=== PATIENT | male | born 1950 | race Two or more races ===

== ENCOUNTER 2021-01-31 12:18 | Outpatient (CLI) | payer OTHER, BC | END 2021-01-31 12:28 | disposition home or self-care (01) | LOC: RAD 12:18 | PROVIDERS: ATTEND Internal Medicine | DX: E03.8 Other specified hypothyroidism (principal); I10 Essential (primary) hypertension; M54.59 Other low back pain; Z01.810 Encounter for preprocedural cardiovascular examination; E55.9 Vitamin D deficiency, unspecified; E11.51 Type 2 diabetes mellitus with diabetic peripheral angiopathy without gangrene; N41.0 Acute prostatitis ==

== ENCOUNTER 2022-10-21 12:03 | Outpatient (CLI) | payer OTHER, BC | END 2022-10-21 12:23 | disposition home or self-care (01) | LOC: RAD 12:03 | PROVIDERS: ATTEND Internal Medicine | DX: M25.511 Pain in right shoulder (principal); M65.841 Other synovitis and tenosynovitis, right hand; M79.641 Pain in right hand ==